=== PATIENT | female | born 1980 | race Caucasian/White ===

== ENCOUNTER 2018-03-27 15:15 | Outpatient (REF) | payer OTHER, SELFPAY ==
--- NOTE | 2018-03-27 14:00 | PAPFT_PTH ---
PATIENT: Shelby Sutton LOC: [facility] U#:[id number] AGE/SX: 38/F ROOM: RE03/27/[address]: Jennyfer Byers V : 1980 BED: DIS: 03/27/2018 SPEC #: [id number] RECD: 04/01/18 14:43 STATUS: LEBRON REQ #: [id number] GUILLERMO: 03/27/18 14:[address]: Jennyfer Byers V DEPT: [facility] Cytology RECD BY: Emma Pantoja ENTERED: 04/01/18 14:44 SP TYPE: PAPFT OTHR DR: Huan Gerardo Tissues: 1 - CX/ENDOCX FOR PAP SMEARS Procedures: PAP THIN PREP/UVM Screening HPV DNA PROBE Comments: [id number]
== END 2018-03-27 15:35 ==
LOC: LBN 15:15
PROVIDERS: PCP Internal Medicine; Visit Provider Family Medicine
DX: Z12.4 Encounter for screening for malignant neoplasm of cervix (principal); Z11.51 Encounter for screening for human papillomavirus (HPV); Z01.419 Encounter for gynecological examination (general) (routine) without abnormal findings
CPT/HCPCS: 88142; 87624

== ENCOUNTER 2018-06-08 13:50 | Outpatient (CLI) | payer OTHER, SELFPAY ==
--- NOTE | 2018-06-08 15:01 | DI.RAD_ITS ---
SYMPTOM/DIAGNOSIS: COUGH, R05 PA AND LATERAL CHEST: There are no prior comparison exams. The cardiac and mediastinal contours have a normal appearance. The lungs are well inflated and clear. No infiltrate or effusion is seen. IMPRESSION: Negative chest xray.
== END 2018-06-08 14:10 ==
PROVIDERS: PCP Internal Medicine; Visit Provider Physician Assistant Medical
DX: R05 Cough (principal)
CPT/HCPCS: 71046

== ENCOUNTER 2019-03-30 09:17 | Outpatient (REF) | payer OTHER, SELFPAY ==
[2019-03-30 15:58] LABS: Calculated LDL 130 mg/dL; Cholesterol 201 mg/dL (<200); Folate 16.4 ng/mL (8.6-20.0); Glucose 102 mg/dL (74-106); HDL Cholesterol 52 mg/dL (40-60); TSH (W/Ref FT4) 2.48 uIU/mL (0.36-3.74); Triglyceride 95 mg/dL (<150)
== END 2019-03-30 09:37 ==
LOC: NCHCN 09:17
PROVIDERS: PCP Internal Medicine; Visit Provider Family Medicine
DX: Z00.00 Encounter for general adult medical examination without abnormal findings (principal); Z13.1 Encounter for screening for diabetes mellitus; Z13.29 Encounter for screening for other suspected endocrine disorder; Z13.220 Encounter for screening for lipoid disorders
CPT/HCPCS: 80061; 82947; 82746; 84443

== ENCOUNTER 2019-04-05 01:23 | Outpatient (CLI) | payer OTHER, SELFPAY ==
--- NOTE | 2019-04-05 | PFT_ITS ---
PULMONARY FUNCTION TEST REPORT Patient - Shelby Sutton DATE OF SERVICE April 05, 2019 REQUESTING PROVIDER Jennyfer Byers M.D. INTERPRETATION OF STUDY Spirometry shows mild obstructive airways disease with no significant bronchodilators response. LUNG VOLUMES - Lung volumes show no evidence of restriction. There is mild hyperinflation. DIFFUSION CAPACITY- Elevated. AIRWAY RESISTANCE - Normal. IMPRESSION Mild obstructive airways disease with no significant bronchodilator response. This is associated with mild hyperinflation and elevated diffusion capacity. This constellation of finding can be seen in asthma. Clinical correlation recommended. Jacki Gonzalez M.D. MAXIMO/ 04/22/19
[2019-04-05] MEDS: Inhaler, Assist Device 1 EACH MC (13:54)
[2019-04-05] MEDS: Albuterol HFA 18 GM 200 PUFF INH IH (13:55)
== END 2019-04-05 01:43 ==
PROVIDERS: PCP Family Medicine; Visit Provider Family Medicine
DX: J45.909 Unspecified asthma, uncomplicated (principal); R05 Cough
CPT/HCPCS: 94060; 94150; 94726; 94729

== ENCOUNTER 2020-04-04 22:33 | Outpatient (REF) | payer OTHER, SELFPAY ==
[2020-04-04 19:06] LABS: Anion Gap 11.3 mmol/L (3-11); BUN 16 mg/dL (7-18); CO2 21.7 mmol/L (21.0-32.0); CREATININE 0.93 mg/dL (0.55-1.02); Calcium 9.1 mg/dL (8.5-10.1); Chloride 107 mmol/L (98-107); Glucose 100 mg/dL (74-106); Potassium 4.3 mmol/L (3.5-5.1); Sodium 140 mmol/L (136-145)
[2020-04-04 19:34] LABS: Hemoglobin A1C 5.6 % (<5.7)
== END 2020-04-04 22:53 ==
LOC: NCHCN 22:33
PROVIDERS: PCP Family Medicine; Visit Provider Family Medicine
DX: Z00.00 Encounter for general adult medical examination without abnormal findings (principal); I10 Essential (primary) hypertension
CPT/HCPCS: 80048; 85027; 83036

== ENCOUNTER 2020-04-06 01:38 | Outpatient (CLI) | payer OTHER, SELFPAY ==
--- NOTE | 2020-04-06 13:43 | DI.MAMMO_ITS ---
EXAM: MG MAMMO SCREENING CLINICAL HISTORY: SCREENING, [facility],Z00.00,FAMILY H/O BREAST CA,Z80.3,BASELIN. TECHNIQUE: Bilateral full field digital CC and MLO mammographic images were obtained with 3D tomosyn thesis and utilizing computer aided detection (CAD). COMPARISON: None. This is a baseline mammogram in a 40-year-old patient with significant family his tory. Both her mother and grandmother had postmenopausal breast cancer. This patient has no present breast complaints. FINDINGS: The fibroglandular tissue is moderately dense. There is a 10 x 12 millimeter nodular density in the left breast, medial of center and best seen on t he cc view, located 11 centimetres in from the nipple. there is also a small microcalcification group towards the lateral aspect of the left breast located 7 centimetres in from the nipple, this require spot Mag CC view. In the opposite-right breast there is a area of asymmetric tissue-possible nodule towards the upper o uter quadrant, best seen on MLO view. No malignant-appearing microcalcification groups in the right breast. There is no significant architectural distortion nor skin thickening-retraction. IMPRESSION: 1. Two areas in the left breast requiring additional views including spot compression 3D DC C views of a medial of center located 10 x 12 millimeter nodular density as well as spot Mag cc 2D view of a group of microcalcifications lateral of center. 2. Single area in the right breast requiring additional spot compression MLO view. 3. Also recommend bilateral breast ultrasound. This patient has significant family history and that both her mother and grandmother were diagnosed w ith breast cancer. BI-RADS Category 0 - Assessment Incomplete: Need additional imaging evaluation Breast Density - Category C - Heterogeneously dense Breast density Category C or D implies that the patient has dense breast tissue. Dense breast tissue can make it harder to find cancer on a mammogram. Dense breast tissue is also associated with an incr eased risk of breast cancer. This information about the result of the mammogram report was provided to the patient to raise their awareness. Use this report when you speak with the patient about their risks for breast cancer, which includes their family history. At that time, you may recommend additional screening tests (Ultrasoun d or MRI) as these tests may add significant information. A negative radiographic report should not delay biopsy if a dominant or clinically suspicious mass is present. Up to ten percent of cancers are not identified on mammography. A negative report may reinforce clinical impression. Adenosis and dense breasts may obscure an underlying neoplasm. False positive reports average 6 to 10%. Patient will receive a letter notifying them of these results.
== END 2020-04-06 01:58 ==
PROVIDERS: PCP Family Medicine; Visit Provider Family Medicine
DX: Z12.31 Encounter for screening mammogram for malignant neoplasm of breast (principal); Z80.3 Family history of malignant neoplasm of breast; R92.8 Other abnormal and inconclusive findings on diagnostic imaging of breast; R92.0 Mammographic microcalcification found on diagnostic imaging of breast
CPT/HCPCS: 77063; 77067

== ENCOUNTER 2020-05-02 02:20 | Outpatient (CLI) | payer OTHER, SELFPAY ==
--- NOTE | 2020-05-02 15:20 | DI.MAMMO_ITS ---
EXAM: MG MAMMO SCREEN CALL BACK BI CLINICAL HISTORY: F/U MAMMO, NODULAR DENSITY LT BREAST,MICROCALCIFICATION,RT BREAST TECHNIQUE: Spot compression views with tomography were performed of both breasts. Spot magnificatio n CC view was performed of the lateral left breast. COMPARISON: Baseline examination of March 26. FINDINGS: Right breast: No persistent abnormality is seen on the spot compression views. Findings are consiste nt with overlying fibroglandular tissue. Masses/Architectural Distortion: None seen. Microcalcifications: No suspicious pleomorphic-type are seen. Skin Thickening/Nipple Retraction: None. Left breast: Spot compression CC view of the medial left breast shows no persistent abnormality. Fin dings likely represent overlying fibroglandular tissue. No corresponding abnormality is seen on the MLO view. Spot magnification view shows a faintly visualized rounded calcifications. No suspicious calcifications are seen. IMPRESSION: Right breast: Negative. Left breast: Faintly visualized calcifications in the upper outer quadrant.. BI-RADS Category 3 - 6 month - Probably Benign Finding: Recommend follow-up mammography in 6 months Breast Density - Category C - Heterogeneously dense Breast density category C or D implies that the patient has dense breast tissue. Dense breast tissue is very common and is not abnormal but dense breast tissue can make it harder to find cancer on a ma mmogram. Also, dense breast tissue may increase their breast cancer risk. This information about the result of the mammogram report was provided to the patient to raise their awareness. Use this report when you speak with the patient about their risks for breast cancer, which includes their family hist ory. At that time, you may recommend for more screening tests (Ultrasound or MRI) as they might be us eful based on their risk. A negative radiographic report should not delay biopsy if a dominant or clinically suspicious mass is present. Up to ten percent of cancers are not identified on mammography. A negative report may reinforce clinical impression. Adenosis and dense breasts may obscure an underlying neoplasm. False positive reports average 6 to 10%. Patient will receive a letter notifying them of these results.
== END 2020-05-02 02:40 ==
PROVIDERS: PCP Family Medicine; Visit Provider Family Medicine
DX: R92.8 Other abnormal and inconclusive findings on diagnostic imaging of breast (principal); R92.0 Mammographic microcalcification found on diagnostic imaging of breast
CPT/HCPCS: 77063; 77067

== ENCOUNTER 2020-11-01 02:29 | Outpatient (CLI) | payer OTHER, SELFPAY ==
--- NOTE | 2020-11-01 | DI.US_ITS ---
Exam(s) US BREAST LT COMPLETE EXAM: US BREAST LT COMPLETE CLINICAL HISTORY: DIAGNOSTIC, 6 MO F/U, F/U ABNL MAMMO,R92.8,FAMILY H/O BREAST CA,Z80.3. TECHNIQUE: Complete ultrasound of the left breast was performed including all 4 quadrants, the retro areolar region, and the ipsilateral axilla. COMPARISON: Prior mammograms were reviewed. Today's diagnostic left breast ultrasound was reviewed FINDINGS: No evidence of solid or significant cystic lesions in all 4 quadrants of the left breast. No focal findings in the retroareolar region Upper normal lymph nodes in left axilla noted IMPRESSION: Negative complete left breast ultrasound Appropriate follow-up is to keep this patient yearly mammogram schedule, this implying the next [facility] mamm[facility] would be in March 2020, with earlier imaging if a self detected breast change is no pan. BI-RADS Category 2 - Benign Findings Breast Density - Category C - Heterogeneously dense Breast density Category C or D implies that the patient has dense breast tissue. Dense breast tissue can make it harder to find cancer on a mammogram. Dense breast tissue is also associated with an incr eased risk of breast cancer. This information about the result of the mammogram report was provided to the patient to raise their awareness. Use this report when you speak with the patient about their risks for breast cancer, which includes their family history. At that time, you may recommend additional screening tests (Ultrasoun d or MRI) as these tests may add significant information. A negative radiographic report should not delay biopsy if a dominant or clinically suspicious mass is present. Up to ten percent of cancers are not identified on mammography. A negative report may reinforce clinical impression. Adenosis and dense breasts may obscure an underlying neoplasm. False positive reports average 6 to 10%. Patient will receive a letter notifying them of these results.
--- NOTE | 2020-11-01 09:21 | DI.MAMMO_ITS ---
Exam(s) MG MAMMO DIAGNOSTIC UNI EXAM: MG MAMMO DIAGNOSTIC UNI LEFT AND COMPLETE LEFT BREAST ULTRASOUND CLINICAL HISTORY: DIAGNOSTIC, 6 MO F/U, F/U ABNL MAMMO,R92.8,FAMILY H/O BREAST CA,Z80.3. TECHNIQUE: Unilateral spot mammographic images were obtained with 3D [employer] and util izing computer aided detection (CAD). COMPARISON: Prior mammograms dating back to baseline mammogram March 2020, the most recent being the diagnostic mammogram April 2020.. Her mother was recently diagnosed with breast cancer. FINDINGS: Previously described asymmetric density in the medial aspect of the left breast appears less concerni ng on the present diagnostic follow mammogram. This was followed with complete left breast ultrasound today which was negative for significant focal findings in all 4 quadrants, as well as the retroareolar region Benign-appearing lymph nodes in left axilla were noted IMPRESSION: No radiographic evidence of malignancy Negative complete left breast ultrasound Appropriate follow-up is to keep this patient yearly mammogram schedule, this implying the next [facility] mammogram would be in March 2021. The patient was informed of the findings and follow-up recommendations prior to leaving the [facility] today. BI-RADS Category 2 - Benign Findings Breast Density - Category C - Heterogeneously dense Breast density Category C or D implies that the patient has dense breast tissue. Dense breast tissue can make it harder to find cancer on a mammogram. Dense breast tissue is also associated with an incr eased risk of breast cancer. This information about the result of the mammogram report was provided to the patient to raise their awareness. Use this report when you speak with the patient about their risks for breast cancer, which includes their family history. At that time, you may recommend additional screening tests (Ultrasoun d or MRI) as these tests may add significant information. A negative radiographic report should not delay biopsy if a dominant or clinically suspicious mass is present. Up to ten percent of cancers are not identified on mammography. A negative report may reinforce clinical impression. Adenosis and dense breasts may obscure an underlying neoplasm. False positive reports average 6 to 10%. Patient will receive a letter notifying them of these results.
== END 2020-11-01 02:49 ==
PROVIDERS: PCP Family Medicine; Visit Provider Family Medicine
DX: R92.8 Other abnormal and inconclusive findings on diagnostic imaging of breast (principal); R92.2 Inconclusive mammogram; Z80.3 Family history of malignant neoplasm of breast
CPT/HCPCS: 76642; 77061; 77065; G0279

== ENCOUNTER 2021-06-28 02:22 | Outpatient (CLI) | payer OTHER, SELFPAY ==
--- NOTE | 2021-06-28 | DI.MAMMO_ITS ---
Exam(s) MAMMO SCREENING EXAM: MAMMO SCREENING CLINICAL HISTORY: SCREENING, [facility], Z00.00, FAM HX BREAST CA, Z80.3 TECHNIQUE: Bilateral full field digital CC and MLO mammographic images were obtained with 3D tomosyn thesis and utilizing computer aided detection (CAD). COMPARISON: Available for comparison. FINDINGS: Masses/Architectural Distortion: None seen. Microcalcifications: No suspicious pleomorphic-type are seen. Skin Thickening/Nipple Retraction: None. IMPRESSION: 1. No significant interval change with no specific features of malignancy noted. 2. Unless there is more urgent need, screening mammography is recommended, as per [employer] guidelines. BI-RADS Category 1 - Negative Breast Density - Category C - Heterogeneously dense Breast density category C or D implies that the patient has dense breast tissue. Dense breast tissue is very common and is not abnormal but dense breast tissue can make it harder to find cancer on a ma mmogram. Also, dense breast tissue may increase their breast cancer risk. This information about the result of the mammogram report was provided to the patient to raise their awareness. Use this report when you speak with the patient about their risks for breast cancer, which includes their family hist ory. At that time, you may recommend for more screening tests (Ultrasound or MRI) as they might be us eful based on their risk. A negative radiographic report should not delay biopsy if a dominant or clinically suspicious mass is present. Up to ten percent of cancers are not identified on mammography. A negative report may reinforce clinical impression. Adenosis and dense breasts may obscure an underlying neoplasm. False positive reports average 6 to 10%. Patient will receive a letter notifying them of these results.
== END 2021-06-28 02:42 ==
PROVIDERS: PCP Family Medicine; Visit Provider Family Medicine
DX: Z12.31 Encounter for screening mammogram for malignant neoplasm of breast (principal); R92.8 Other abnormal and inconclusive findings on diagnostic imaging of breast
CPT/HCPCS: 77063; 77067

== ENCOUNTER → 2022-03-13 18:39 | Outpatient (CLI) | payer OTHER, SELFPAY ==
--- NOTE | 2022-03-13 16:45 | DI.RAD_ITS ---
Exam(s) XR FINGER LT MIDDLE EXAM: XR FINGER LT MIDDLE EXAM DATE/TIME: CLINICAL HISTORY: finger injury, pain PIP S69.90XA INJURY. TECHNIQUE: 2D digital imaging was performed of the left finger. Three views were obtained. PA/AP, oblique, and lateral views were obtained. COMPARISON: None. FINDINGS: BONES: No acute fracture is present. No bony destructive lesion is seen. JOINTS: No dislocation is present. SOFT TISSUE: Normal. IMPRESSION: No evidence of acute fracture or dislocation. DATA REPOSITORY: RADIATION DOSE DELIVERED:
--- NOTE | 2022-03-13 17:46 | DI.VRAD_ITS ---
PROCEDURE INFORMATION: Exam: XR Left Finger(s) Exam date and time: 03/13/2022 5:26 PM Age: 41 years old Clinical indication: Other: Left middle finger injury, pain, pip, TECHNIQUE: Imaging protocol: Radiologic exam of the Left fingers. Views: Minimum 2 views. COMPARISON: No relevant prior studies available. FINDINGS: Bones/joints: Normal. Soft tissues: Normal. IMPRESSION: No acute findings. Dictated and Authenticated by: Cory Hernandez MD. Ordering:KENYETTA Wall MD
== END ==
PROVIDERS: PCP Family Medicine; Visit Provider Physician Assistant
DX: S69.82XA Other specified injuries of left wrist, hand and finger(s), initial encounter; M79.645 Pain in left finger(s); X58.XXXA Exposure to other specified factors, initial encounter
CPT/HCPCS: 73140

== ENCOUNTER 2022-05-10 08:56 | Outpatient (REF) | payer OTHER, SELFPAY ==
--- NOTE | 2022-05-10 08:15 | PAPFT_PTH ---
PATIENT: Shelby Sutton LOC: [facility]#:[id number] AGE/SX: 42/F ROOM: RE05/10/[address]: Jennyfer Byers V : 1980 BED: DIS: 05/10/2022 SPEC #: [id number] RECD: 05/10/22 17:52 STATUS: LEBRON WILLAMS #: [id number] GUILLERMO: 05/10/22 08:[address]: Jennyfer Byers V DEPT: [facility] Cytology RECD BY: Fe Archer Tissues: 1 - CX/ENDOCX FOR PAP SMEARS Procedures: PAP THIN PREP/UVM Screening HPV DNA PROBE Comments: [id number]
--- OUTSIDE RECORDS SUMMARY | 2022-05-10 08:59 | XMS_ITS ---
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.1 Active 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 rhinitis due to pollen Problem Deviated nasal J34.2 Active 30122 0000 septum Problem Postnasal drip R09.82 Active 52648 007 Problem Allergic J30.9 Active 61672617 rhinitis Problem Other viral B97.89 Active 44957385 agents as the cause of diseases classified elsewhere ALLERGIES Substance Reaction Event Type Date Status environmental Unknown Non Drug Allergy Sep, Active ENCOUNTERS Encounter Location Date Diagnosis [address], Apr, Allerg ic rhinitis due [facility] [address] to pollen J30.1 [place], [place] [id number] [address], Mar, Allerg ic rhinitis due [facility] [address] to pollen J30.1 [place] [id number] [address], Feb, Allerg ic rhinitis due [facility] [address] to pollen J30.1 [place] [id number] [address], Jan, Allerg ic rhinitis due [facility] [address] to pollen J30.1 [place] [id number] [address], Dec, Allerg ic rhinitis due [facility] [address] to pollen J30.1 [place], [place] [id number] [address], Dec, Allerg ic rhinitis due [facility] [address] to pollen J30.1 [place] [id number] [address], Nov, Allerg ic rhinitis due [facility] [address] to pollen J30.1 [place] [id number] [address], Sep, Allerg ic rhinitis due [facility] [address] to pollen J30.1 [place] [id number] [address], Sep, Allerg ic rhinitis due [facility] [address] to pollen J30.1 [place] [id number] [address], August, Allerg ic rhinitis due [facility] [address] to pollen J30.1 [place] [id number] [address], Jul, Allerg ic rhinitis due [facility] [address] to pollen J30.1 [facility], [place] [id number] [address], Jun, Allerg ic rhinitis due [facility] [address] to pollen J30.1 [place] [id number] [address], Jun, Allerg ic rhinitis due [facility] [address] to pollen J30.1 [facility], [place] [id number] [address], May, Allerg ic rhinitis due [facility] [address] to pollen J30.1 [facility] [id number] [address], Apr, Allerg ic rhinitis due [facility] [address] to pollen J30.1 [facility] [id number] [address] Mar, Allergic r hinitis due Ot[facility] [address] [place], [place] to pollen J30.[id number], Mar, Allerg ic rhinitis due [facility] [address] to pollen J30.1 [place] [id number] [address], Mar, Allerg ic rhinitis due [facility] [address] to pollen J30.1 [place] [id number] [address], Feb, [facility] [address] [place], [place] [id number] [address], Feb, Allerg ic rhinitis due [facility] [address] to pollen J30.1 [place], [place] [id number] [address], Jan, Allerg ic rhinitis due [facility] [address] to pollen J30.1 [place] [id number] [address], Jan, Allerg ic rhinitis due [facility] [address] to pollen J30.1 [facility], [place] [id number] [address], Dec, Allerg ic rhinitis due [facility] [address] to pollen J30.1 [facility] [id number] [address], Nov, Allerg ic rhinitis due [facility] [address] to pollen J30.1 [facility] [id number] [address], Oct, Allerg ic rhinitis due [facility] [address] to pollen J30.1 [place] [id number] [address], Sep, Allerg ic rhinitis due [facility] [address] to pollen J30.1 [place] [id number] [address], Sep, Allerg ic rhinitis due [facility] [address] to pollen J30.1 [place] [id number] [address], August, Allerg ic rhinitis due [facility] [address] to pollen J30.1 [place] [id number] [address], August, Allerg ic rhinitis due [facility] [address] to pollen J30.1 [facility] [id number] [address], Jul, Allerg ic rhinitis due [facility] [address] to pollen J30.1 [place] [id number] [address], Jul, Allerg ic rhinitis due [facility] [address] to pollen J30.1 [place] [id number] [address], Jun, Allerg ic rhinitis due [facility] [address] to pollen J30.1 [facility], [place] [id number] [address], May, Allerg ic rhinitis due [facility] [address] to pollen J30.1 [facility] [id number] [address], Apr, Allerg ic rhinitis due [facility] [address] to pollen J30.1 [facility] [id number] [address], Mar, Allerg ic rhinitis due [facility] [address] to pollen J30.1 [facility] [id number] [address], Mar, Allerg ic rhinitis due [facility] [address] to pollen J30.1 [facility], [place] [id number] [address], Mar, Allerg ic rhinitis due [facility] [address] to pollen J30.1 [place] [id number] [address], Feb, Allerg ic rhinitis due [facility] [address] to pollen J30.1 [facility] [id number] [address], Feb, Allerg ic rhinitis due [facility] [address] to pollen J30.1 [facility], [place] [id number] [address], Jan, Allerg ic rhinitis due [facility] [address] to pollen J30.1 [facility] [id number] [address], Dec, Allerg ic rhinitis due [facility] [address] to pollen J30.1 [facility] [id number] [address], Nov, Allerg ic rhinitis due [facility] [address] to pollen J30.1 [facility], [place] [id number] [address], Nov, Allerg ic rhinitis due [facility] [address] to pollen J30.1 [facility] [id number] [address], Nov, Allerg ic rhinitis due [facility] [address] to pollen J30.1 [facility] [id number] [address], Nov, Allerg ic rhinitis due [facility] [address] to pollen J30.1 [facility] [id number] [address], Nov, Allerg ic rhinitis due [facility] [address] to pollen J30.1 [place] [id number] [address], Oct, Allerg ic rhinitis due [facility] [address] to pollen J30.1 [facility] [id number] [address], Oct, Allerg ic rhinitis due [facility] [address] to pollen J30.1 [place] [id number] [address], Oct, Allerg ic rhinitis due [facility] [address] to pollen J30.1 [facility] [id number] [address], Sep, Allerg ic rhinitis due [facility] [address] to pollen J30.1 [place] [id number] [address], Sep, Allerg ic rhinitis due [facility] [address] to pollen J30.1 [place] [id number] [address], Sep, Allerg ic rhinitis due [facility] [address] to pollen J30.1 [facility], [place] [id number] [address], Sep, Allerg ic rhinitis due [facility] [address] to pollen J30.1 [place] [id number] [address], Sep, Allerg ic rhinitis due [facility] [address] to pollen J30.1 [place] [id number] [address], August, [facility] [address] [place] [id number] [address], Jun, Allerg ic rhinitis due [facility] [address] to pollen J30.1 [place] [id number] [address], May, Allerg ic rhinitis due [facility] [address] to pollen J30.1 [place] [id number] [address], Apr, Allerg ic rhinitis due [facility] [address] to pollen J30.1 [place] [id number] [address], Mar, Allerg ic rhinitis due [facility] [address] to pollen J30.1 [place] [id number] [address], Mar, Allerg ic rhinitis due [facility] [address] to pollen J30.1 [place] [id number] [address], Mar, Allerg ic rhinitis due [facility] [address] to pollen J30.1 [place] [id number] [address], Feb, Allerg ic rhinitis due [facility] [address] to pollen J30.1 [facility], [place] [id number] [address], Jan, Allerg ic rhinitis due [facility] [address] to pollen J30.1 [facility], [place] [id number] [address] Jan, Allergic r hinitis due Ot[facility] [address] [place], [place] to pollen J30.[id number], Dec, Allerg ic rhinitis due [facility] [address] to pollen J30.1 [place] [id number] [address], Nov, Allerg ic rhinitis due [facility] [address] to pollen J30.1 [place] [id number] [address], Nov, Allerg ic rhinitis due [facility] [address] to pollen J30.1 [place] [id number] [address] Oct, Allergic r hinitis due Ot[facility] [address] [place], [place] to pollen J30.[id number], Sep, Allerg ic rhinitis due [facility] [address] to pollen J30.1 [place] [id number] [address], Sep, Allerg ic rhinitis due [facility] [address] to pollen J30.1 [place] [id number] [address], Sep, Allerg ic rhinitis due [facility] [address] to pollen J30.1 [place] [id number] [address], August, Allerg ic rhinitis due [facility] [address] to pollen J30.1 [place] [id number] [address], Jul, Allerg ic rhinitis due [facility] [address] to pollen J30.1 [place] [id number] [address], Jul, Allerg ic rhinitis due [facility] [address] to pollen J30.1 [place] [id number] [address], Jun, Allerg ic rhinitis due [facility] [address] to pollen J30.1 [place] [id number] [address], Apr, Allerg ic rhinitis due [facility] [address] to pollen J30.1 [place] [id number] [address], Apr, Allerg ic rhinitis due [facility] [address] to pollen J30.1 [place] [id number] [address], Mar, Allerg ic rhinitis due [facility] [address] to pollen J30.1 [place] [id number] [address], Mar, Allerg ic rhinitis due [facility] [address] to pollen J30.1 [place] [id number] [address], Feb, Allerg ic rhinitis due [facility] [address] to pollen J30.1 [place] [id number] [address], Jan, Allerg ic rhinitis due [facility] [address] to pollen J30.1 [place] [id number] [address], Jan, Allerg ic rhinitis due [facility] [address] to pollen J30.1 [place] [id number] [address], Jan, [facility] [address] [place] [id number] [address], Dec, Allerg ic rhinitis due [facility] [address] to pollen J30.1 [place] [id number] [address], Nov, Allerg ic rhinitis due [facility] [address] to pollen J30.1 [place] [id number] [address], Nov, Allerg ic rhinitis due [facility] [address] to pollen J30.1 [facility] [id number] [address], Oct, Allerg ic rhinitis due [facility] [address] to pollen J30.1 [place] [id number] [address], Sep, Allerg ic rhinitis due [facility] [address] to pollen J30.1 [place] [id number] [address], August, Allerg ic rhinitis due [facility] [address] to pollen J30.1 [place] [id number] [address], August, Allerg ic rhinitis due [facility] [address] to pollen J30.1 [place] [id number] [address], August, Allerg ic rhinitis due [facility] [address] to pollen J30.1 [facility], [place] [id number] [address], Jul, Allerg ic rhinitis due [facility] [address] to pollen J30.1 [place] [id number] [address], Jul, Allerg ic rhinitis due [facility] [address] to pollen J30.1 [place], [place] [id number] [address], Jun, Allerg ic rhinitis due [facility] [address] to pollen J30.1 [place] [id number] [address], May, Allerg ic rhinitis due [facility] [address] to pollen J30.1 [place] [id number] [address], Apr, Allerg ic rhinitis due [facility] [address] to pollen J30.1 [place], [place] [id number] [address], Apr, Allerg ic rhinitis due [facility] [address] to pollen J30.1 [place] [id number] [address], Mar, [facility] [address] [place] [id number] [address], Mar, Allerg ic rhinitis due [facility] [address] to pollen J30.1 [place] [id number] [address], Feb, Allerg ic rhinitis due [facility] [address] to pollen J30.1 [place] [id number] [address], Feb, Allerg ic rhinitis due [facility] [address] to pollen J30.1 [place] [id number] [address], Jan, Allerg ic rhinitis due [facility] [address] to pollen J30.1 [place] [id number] [address], Jan, Allerg ic rhinitis due [facility] [address] to pollen J30.1 [place] [id number] [address], Jan, Allerg ic rhinitis due [facility] [address] to pollen J30.1 [place] [id number] [address], Dec, Allerg ic rhinitis due [facility] [address] to pollen J30.1 [place] [id number] [address], Nov, Allerg ic rhinitis due [facility] [address] to pollen J30.1 [place] [id number] [address], Nov, Allerg ic rhinitis due [facility] [address] to pollen J30.1 [facility], [place] [id number] [address] Oct, Allergic r hinitis due [facility] [address] [place], [place] to pollen J30.[id number], Oct, Allerg ic rhinitis due [facility] [address] to pollen J30.1 [place], [place] [id number] [address], Sep, Allerg ic rhinitis due [facility] [address] to pollen J30.1 [place] [id number] [address], August, Allerg ic rhinitis due [facility] [address] to pollen J30.1 [place] [id number] [address], August, Allerg ic rhinitis due [facility] [address] to pollen J30.1 [place] [id number] [address], Jul, Allerg ic rhinitis due [facility] [address] to pollen J30.1 [place] [id number] [address], Jul, Allerg ic rhinitis due [facility] [address] to pollen J30.1 [facility], [place] [id number] [address], Jun, Allerg ic rhinitis due [facility] [address] to pollen J30.1 [place], [place] [id number] [address], May, Allerg ic rhinitis due [facility] [address] to pollen J30.1 [place] [id number] [address], Apr, Allerg ic rhinitis due [facility] [address] to pollen J30.1 [place] [id number] [address], Apr, Allerg ic rhinitis due [facility] [address] to pollen J30.1 [place], [place] [id number] [address], Mar, Allerg ic rhinitis due [facility] [place] [facility] [address] [address] to pollen J30.1 [place] [id number] [address], Feb, Allerg ic rhinitis due [facility] [place] [address] [address] to pollen J30.1 [place], [place] [id number] [address], Jan, Allerg ic rhinitis due [facility] [address] to pollen J30.1 [place] [id number] [address], Jan, Postna romy drip R09.82 ; [facility] [address] [address] Al lergic rhinitis due [place] to pollen J3 0.1 ; Acute [id number] upper respirator y infection, unspe cified J06.9 and Other viral agents as the ca use of diseases classif ied elsewhere B97.[address], Jan, Allerg ic rhinitis due [facility] [address] to pollen J30.1 [place], [place] [id number] [address], Dec, Allerg ic rhinitis due [facility] [place] [address] [address] to pollen J30.1 [place] [id number] [address], Dec, Allerg ic rhinitis due [facility] [address] to pollen J30.1 [place], [place] [id number] [address], Nov, Allerg ic rhinitis due [facility] [address] to pollen J30.1 [place], [place] [id number] [address], Nov, Allerg ic rhinitis due [facility] [address] to pollen J30.1 [place] [id number] [address] Oct, Otolaryngology [address] [place], [place] [id number] [address], Oct, Allerg ic rhinitis due [facility] [address] to pollen J30.1 [place], [place] [id number] [address], Oct, Allerg ic rhinitis due [facility] [address] to pollen J30.1 [place] [id number] [address], Sep, Allerg ic rhinitis due [facility] [address] to pollen J30.1 [place], [place] [id number] [address], Sep, Allerg ic rhinitis due [facility] [address] to pollen J30.1 [place] [id number] [address], August, Allerg ic rhinitis due [facility] [address] to pollen J30.1 [place] [id number] [address] August, Postnasal drip R09.82 ; [facility] [address] [place], [place] Allergic rhinitis due [id number] to pollen J30.1 and Allergic rhiniti s due to pollen 477.[address], Jul, Allerg ic rhinitis due [facility] [address] to pollen 477.0 [facility], [place] [id number] [address] Jul, Allergic r hinitis due [facility] [address] [place], [place] to pollen J30.[id number], Jul, Allerg ic rhinitis due [facility] [address] to pollen J30.1 [place] [id number] [address], Jul, Allerg ic rhinitis due [facility] [address] to pollen J30.1 [place] [id number] [address], Jun, Allerg ic rhinitis due [facility] [address] to pollen J30.1 [place], [place] [id number] [address], Jun, Allerg ic rhinitis due [facility] [address] to pollen J30.1 [place], [place] [id number] [address], May, Allerg ic rhinitis due [facility] [address] to pollen J30.1 [place] [id number] [address], May, Allerg ic rhinitis due [facility] [address] to pollen J30.1 [place] [id number] [address], May, [facility] [address] [place] [id number] [address], May, Allerg ic rhinitis due [facility] [address] to pollen J30.1 [place], [place] [id number] [address] May, Allergic r hinitis due Otolaryngology [address] [place], [place] to pollen J30.[id number], Apr, Allerg ic rhinitis due [facility] [address] to pollen J30.1 [place], [place] [id number] [address], Apr, Allerg ic rhinitis due [facility] [address] to pollen J30.1 [place], [place] [id number] [address], Apr, Allerg ic rhinitis due [facility] 5 [address] to allergen J30.9 ; [facility], [place] Allergic rhi nitis due [id number] to pollen J30.1 and Postnasal drip R 09.[address], Apr, Allerg ic rhinitis due [facility] [address] to pollen J30.1 [place], [place] [id number] [address], Mar, Allerg ic rhinitis due [facility] 5 [address] to pollen J30.1 [place], [place] [id number] [address], Mar, Allerg ic rhinitis due [facility] [address] to pollen J30.1 [place], [place] [id number] [address], Mar, Allerg ic rhinitis due [facility] [address] to allergen J30.9 [place], [place] [id number] [address] Feb, Otolaryngology [address] [place], [place] [id number] [address], Feb, Allerg ic rhinitis due [facility] [address] to allergen J30.9 [place] [id number] [address], Feb, Allerg ic rhinitis due [facility] [address] to allergen J30.9 [place] [id number] [address], Feb, Allerg ic rhinitis due [facility] [address] to allergen J30.9 [place] [id number] [address] Feb, Otolaryngology [address] [place], [place] [id number] [address], Feb, Allerg ic rhinitis due [facility] [address] to allergen J30.9 [place] [id number] [address], Jan, Allerg ic rhinitis due [facility] [address] to allergen J30.9 [place] [id number] [address], Jan, Allerg ic rhinitis due [facility] [address] to allergen J30.9 [place] [id number] [address], Jan, Allerg ic rhinitis due [facility] [address] to allergen J30.9 [place] [id number] [address] Jan, Allergic r hinitis due Otolaryngology [address] [place], [place] to allerg en J30.[id number], Dec, Allerg ic rhinitis due [facility] [address] to allergen 477.8 [place] [id number] [address], Dec, ALLERG IC RHINITIS NOS [facility] [address] 47 7.9 ; Postnasal drip [facility], [place] 784.91 and U RI (upper [id number] respiratory infe ction) 465.[address], Dec, Allerg ic rhinitis due [facility] [address] to allergen 477.8 [place] [id number] [address] Dec, Allergic r hinitis due Otolaryngology [address] [place] to allerg en 477.[id number], Dec, Allerg ic rhinitis due [facility] [address] to allergen 477.8 [place] [id number] [address], Nov, Allerg ic rhinitis due [facility] [address] to allergen 477.8 [facility], [place] [id number] [address], Nov, Allerg ic rhinitis due [facility] [address] to allergen 477.8 [place] [id number] [address], Nov, Allerg ic rhinitis due [facility] [address] to allergen 477.8 [place] [id number] [address] Nov, Otolaryngology [address] [place] [id number] [address], Nov, Allerg ic rhinitis due [facility] [address] to allergen 477.8 [place] [id number] [address], Oct, Allerg ic rhinitis due [facility] [address] to allergen 477.8 [place] [id number] [address], Oct, Allerg ic rhinitis due [facility] [address] to allergen 477.8 [place] [id number] [address] Oct, Allergic r hinitis due Otolaryngology [address] [place] to allerg en 477.[id number], Oct, ALLERG IC RHINITIS NOS [facility] [address] 47 7.9 and Postnasal [facility], [place] drip 784.[id number], Sep, Allerg ic rhinitis due [facility] [address] to allergen 477.8 [place] [id number] [address], Sep, ALLERG IC RHINITIS NEC [facility] [address] 47 7.8 [place] [id number] [address], Sep, Allerg ic rhinitis due [facility] [address] to allergen 477.8 [place], [place] [id number] [address], Sep, Allerg ic rhinitis due [facility] [address] to allergen 477.8 [place] [id number] [address], Sep, Allerg ic rhinitis due [facility] [address] to allergen 477.8 [place] [id number] [address] Sep, Allergic r hinitis due Otolaryngology [address] [place] to allerg en 477.[id number], August, Allerg ic rhinitis due [facility] [address] to allergen 477.8 [place], [place] [id number] [address], August, Allerg ic rhinitis due [facility] [address] to allergen 477.8 [place] [id number] [address] August, Allergic r hinitis due Otolaryngology [address] [place] to allerg en 477.[id number], August, ALLERG IC RHINITIS NOS [facility] [address] 47 7.9 ; Allergic [place] rhinitis due to [id number] allergen 477.8 ; Acquired deflect ed nasal septum 470 and Postnasal drip [address], Jul, Allerg ic rhinitis due [facility] [address] to allergen 477.8 [place], [place] [id number] [address] Jul, ALLERGIC R HINITIS NOS Otolaryngology [address] [place] [address].[id number], Jul, ALLERG IC RHINITIS NEC [facility] [address] 47 7.8 [facility], [place] [id number] [address], Jun, Allerg ic rhinitis due [facility] [address] to allergen 477.8 [place] [id number] [address], Jun, Allerg ic rhinitis due [facility] [address] to allergen 477.8 [place] [id number] [address], Jun, Allerg ic rhinitis due [facility] [address] to allergen 477.8 [facility], [place] [id number] [address], Jun, Allerg ic rhinitis due [facility] [address] to allergen 477.8 [facility] [id number] [address], Jun, Allerg ic rhinitis due [facility] [address] to allergen 477.8 [facility] [id number] [address], May, ALLERG IC RHINITIS NOS [facility] [address] 47 7.9 [facility], [place] [id number] [address], May, ALLERG IC RHINITIS NEC [facility] [address] 47 7.8 [facility], [place] [id number] [address] May, Allergic r hinitis due Otolaryngology [address] [place] to allerg en 477.[id number], Apr, Allerg ic rhinitis due [facility] [address] to allergen 477.8 [facility], [place] [id number] [address], Apr, Allerg ic rhinitis due [facility] [address] to allergen 477.8 [place] [id number] [address], Apr, Allerg ic rhinitis due [facility] [address] to allergen 477.8 [place], [place] [id number] [address], Mar, Allerg ic rhinitis due [facility] [address] to allergen 477.8 [place] [id number] [address] Mar, Allergic r hinitis due Otolaryngology [address] [place], [place] to allerg en 477.[id number], Mar, Allerg ic rhinitis due [facility] [address] to allergen 477.8 [place], [place] [id number] [address], Mar, Allerg ic rhinitis due [facility] [address] to allergen 477.8 [place] [id number] [address], Mar, Upper respiratory [facility] [address] di sease NOS 478.9 ; [facility] [place] ALLERGIC RHI NITIS NOS [id number] 477.9 ; Postnasa l drip 784.91 and Acqui red deflected nasal septum [address], Mar, [facility] [address] [place] [id number] [address], Feb, Allerg ic rhinitis due [facility] [address] to allergen 477.8 [place], [place] [id number] [address] Feb, ALLERGIC R HINITIS NEC Otolaryngology [address] [place] [address].[id number], Feb, Allerg ic rhinitis due [facility] [address] to allergen 477.8 [place] [id number] [address], Feb, Allerg ic rhinitis due [facility] [address] to allergen 477.8 [facility] [id number] [address], Feb, Allerg ic rhinitis due [facility] [address] to allergen 477.8 [place] [id number] [address], Jan, Allerg ic rhinitis due [facility] [address] to allergen 477.8 [facility], [place] [id number] [address], Jan, Allerg ic rhinitis due [facility] [address] to allergen 477.8 [place] [id number] [address], Jan, Allerg ic rhinitis due [facility] [address] to allergen 477.8 [place] [id number] [address], Jan, Allerg ic rhinitis due [facility] [address] to allergen 477.8 [facility] [id number] [address], Dec, Allerg ic rhinitis due [facility] [address] to allergen 477.8 [place] [id number] [address], Dec, Allerg ic rhinitis due [facility] [address] to allergen 477.8 [place] [id number] [address], Dec, ALLERG IC RHINITIS NOS [facility] [address] 47 7.9 and Postnasal [facility], [place] drip 784.[id number], Dec, [facility] [address] [facility], [place] [id number] [address] Dec, ALLERGIC R HINITIS NEC Otolaryngology [address] [place] 477.[id number], Dec, Allerg ic rhinitis due [facility] [address] to allergen 477.8 [facility], [place] [id number] [address], Dec, Allerg ic rhinitis due [facility] [address] to allergen 477.8 [facility], [place] [id number] [address], Nov, Allerg ic rhinitis due [facility] [address] to allergen 477.8 [facility], [place] [id number] [address], Nov, Allerg ic rhinitis due [facility] [address] to allergen 477.8 [facility], [place] [id number] [address], Nov, Allerg ic rhinitis due [facility] [address] to allergen 477.8 [facility], [place] [id number] [address], Nov, Allerg ic rhinitis due [facility] [address] to allergen 477.8 [facility], [place] [id number] [address], Oct, Allerg ic rhinitis due [facility] [address] to allergen 477.8 [facility], [place] [id number] [address], Oct, Allerg ic rhinitis due [facility] [address] to allergen 477.8 [facility], [place] [id number] [address], Oct, Allerg ic rhinitis due [facility] [address] to allergen 477.8 [facility], [place] [id number] [address] Oct, Otolaryngology [address] [place], [place] [id number] [address], Oct, Allerg ic rhinitis due [facility] [address] to allergen 477.8 ; [facility], [place] ALLERGIC RHI NITIS NOS [id number] 477.9 and Postna romy drip 784.[address], Oct, Allerg ic rhinitis due [facility] [address] to allergen 477.8 [place] [id number] [address], Sep, ALLERG IC RHINITIS NOS [facility] [address] 47 7.9 [place] [id number] [address] Sep, ALLERGIC R HINITIS NEC Otolaryngology [address] [place] 477.[id number], Sep, Allerg ic rhinitis due [facility] [address] to allergen 477.8 [place], [place] [id number] [address], Sep, Allerg ic rhinitis due [facility] [address] to allergen 477.8 [place] [id number] [address], Sep, Allerg ic rhinitis due [facility] [address] to allergen 477.8 [place] [id number] [address], August, Allerg ic rhinitis due [facility] [address] to allergen 477.8 [place] [id number] [address], August, Allerg ic rhinitis due [facility] [address] to allergen 477.8 [place] [id number] [address] August, Allergic r hinitis due Otolaryngology [address] [place] to allerg en 477.[id number], August, Allerg ic rhinitis due [facility] [address] to allergen 477.8 [place], [place] [id number] [address], Jul, Allerg ic rhinitis due [facility] [address] to allergen 477.8 [place] [id number] [address], Jul, Allerg ic rhinitis due [facility] [address] to allergen 477.8 [place] [id number] [facility] Audiology [address] [place] [address] Jul, [address] [place], [place] [id number] [address], Jul, ALLERG IC RHINITIS NOS [facility] [address] 47 7.9 [place] [id number] [address], Jun, ALLERG IC RHINITIS NOS [facility] [address] 47 7.9 ; Postnasal drip Sang [facility], [place] 784.91 and A STHMA NOS [id number] 493.[address] Jun, Otolaryngology [address] [place], [place] [id number] [address] Jun, Allergic r hinitis due Ot[facility]aryngology [address] [place] to allerg en 477.8 and [id number] ASTHMA NOS 493.[address] Mar, Otolaryngology [address] [place], [place] [id number] [address], Mar, ALLERG IC RHINITIS NOS [facility] [address] 47 7.9 ; [facility] [place] 784.[place] ; Acq uired [id number] deflected nasal septum 470 ; HYPERTRPH NASAL TURBINAT 478.0 a nd ASTHMA NOS 493.[address], Feb, [facility] [address] [place], [place] [id number] IMMUNIZATIONS No Known Immunizations SOCIAL HISTORY Never Assessed REASON FOR REFERRAL FUNCTIONAL STATUS PLAN OF CARE Activity Details Follow Up 1 Week Reason: VITAL SIGNS Height 5ft 4 in in 2016-01-22 Height 5ft 4 in in 2015-08-18 Height 5ft 4 in in 2015-04-17 Height 5ft 4 in in 2014-10-10 Height 5ft 4 in in 2014-08-08 Height 5ft 4 in in 2014-03-07 Height 5ft 4 in in 2013-12-20 Height 5ft 4 in in 2013-10-11 Height 5ft 4 in in 2013-03-08 Weight 264 lbs 2016-01-22 Weight 220 lbs 2015-08-18 Weight 250 lbs 2014-10-10 Weight 240 lbs 2014-08-08 Weight 240 lbs 2014-03-07 Weight 220 lbs 2013-12-20 Weight 220 lbs 2013-10-11 Weight 230 lbs 2013-03-08 Heart Rate 88 /min 2016-01-22 Heart Rate 76 /min 2015-04-17 Heart Rate 77 /min 2014-03-07 Heart Rate 80 /min 2013-12-20 Oximetry 97 2014-03-07 Respiratory Rate 16 /min 2014-03-07 BMI 45.31 kg/m2 2016-01-22 BMI 37.76 kg/m2 2015-08-18 BMI 42.91 kg/m2 2014-10-10 BMI 41.19 kg/m2 2014-08-08 BMI 41.19 kg/m2 2014-03-07 BMI 37.76 kg/m2 2013-12-20 BMI 37.76 kg/m2 2013-10-11 BMI 39.48 kg/m2 2013-03-08 Blood pressure systolic 130 mm Hg 2016-01-22 Blood pressure diastolic 88 rt mm Hg 2016-01-22 MEDICATIONS Medication Instructions Dosage Frequency Start End Duration Statu s Date Date Advair Diskus Inhalation Twice 1 puff 12h U nknown 250-50 MCG/DOSE a day Montelukast Orally Once a 1 tablet in 24h Oct, day(s) Unknown Sodium 10 MG day the evening 2015 Proventil HFA Inhalation every 2 puffs as 4h Unknown 108 (90 Base) 4 hrs needed MCG/ACT Ortho Orally Once a 1 tablet 24h Unknown Tri-Cyclen Lo day 0.18/0.215/0.25 MG-25 MCG PROCEDURES Procedure Date Ordered Result Body Site ALLERGY INJ MULT Mar 14, 2014 ALLERGY INJ MULT Dec 22, 2017 M ANTIGEN THERAPY SERV (1ml=1unit) September 18, 2020 ALLERGY INJ MULT Feb 05, 2016 ALLERGY INJ MULT Jan 25, 2022 ALLERGY INJ MULT August 28, 2015 ALLERGY INJ MULT June 08, 2021 ALLERGY INJ MULT Dec 08, 2013 ALLERGY INJ MULT May 26, 2017 ALLERGY INJ MULT September 06, 2013 ALLERGY INJ MULT June 22, 2018 ALLERGY INJ MULT October 16, 2020 ALLERGY INJ MULT Mar 06, 2015 ALLERGY INJ MULT August 14, 2020 ALLERGY INJ MULT Dec 19, 2014 ALLERGY INJ MULT Dec 27, 2019 INTRADERMAL TESTS October 04, 2013 ALLERGY INJ MULT June 06, 2014 ALLERGY INJ MULT Jan 22, 2016 ALLERGY INJ MULT Dec 27, 2013 ALLERGY INJ MULT Jan 30, 2015 ALLERGY INJ MULT May 01, 2020 ALLERGY INJ MULT August 01, 2014 ALLERGY INJ MULT Dec 21, 2018 ALLERGY INJ MULT May 27, 2016 ALLERGY INJ MULT Apr 25, 2014 ALLERGY INJ MULT May 04, 2018 ALLERGY INJ MULT Mar 22, 2019 ALLERGY INJ MULT Nov 15, 2019 ALLERGY INJ MULT August 09, 2013 ALLERGY INJ MULT September 06, 2014 ALLERGY INJ MULT October 04, 2019 M ANTIGEN THERAPY SERV (1ml=1unit) Jan 22, 2016 ALLERGY INJ MULT Dec 08, 2020 ALLERGY INJ MULT October 25, 2013 ALLERGY INJ MULT Dec 02, 2016 INTRADERMAL TESTS Mar 07, 2014 INTRADERMAL TESTS October 04, 2013 P ANTIGEN THERAPY SERV (.5ml=1 unit) September 29, 2013 ALLERGY INJ MULT May 03, 2015 ALLERGY INJ MULT October 18, 2013 ALLERGY INJ MULT Nov 11, 2016 ALLERGY INJ MULT October 16, 2018 ALLERGY INJ MULT October 11, 2013 ALLERGY INJ MULT Nov 29, 2019 ALLERGY INJ MULT Apr 24, 2015 ALLERGY INJ MULT Dec 05, 2014 ALLERGY INJ MULT Nov 17, 2020 ALLERGY INJ MULT August 18, 2015 ALLERGY INJ MULT September 07, 2018 ALLERGY INJ MULT Nov 10, 2017 ALLERGY INJ MULT Jan 23, 2015 ALLERGY INJ MULT Feb 21, 2014 ALLERGY INJ MULT Apr 03, 2020 ALLERGY INJ MULT Dec 14, 2021 ALLERGY INJ MULT July 04, 2014 ALLERGY INJ MULT Jan 03, 2016 M ANTIGEN THERAPY SERV (1ml=1unit) September 20, 2019 ALLERGY INJ MULT Apr 16, 2017 ALLERGY INJ MULT July 07, 2017 ALLERGY INJ MULT Jan 19, 2014 ALLERGY INJ MULT Nov 24, 2013 ALLERGY INJ MULT Feb 10, 2017 ALLERGY INJ MULT August 01, 2014 M ANTIGEN THERAPY SERV (1ml=1unit) Feb 16, 2018 ALLERGY INJ MULT Apr 05, 2019 P ANTIGEN THERAPY SERV (.5ml=1 unit) July 18, 2014 ALLERGY INJ MULT Jun 05, 2015 ALLERGY INJ MULT Mar 16, 2021 ALLERGY INJ MULT July 20, 2021 ALLERGY INJ MULT October 02, 2015 M ANTIGEN THERAPY SERV (1ml=1unit) Jan 27, 2017 ALLERGY INJ MULT August 26, 2016 ALLERGY INJ MULT October 25, 2019 ALLERGY INJ MULT August 31, 2014 INTRADERMAL TESTS July 29, 2014 ALLERGY INJ MULT Jan 06, 2017 ALLERGY INJ MULT Nov 08, 2013 ALLERGY INJ MULT Jan 26, 2021 ALLERGY INJ MULT May 12, 2015 P ANTIGEN THERAPY SERV (.5ml=1 unit) Feb 23, 2014 ALLERGY INJ MULT May 06, 2016 ALLERGY INJ MULT Apr 18, 2014 ALLERGY INJ MULT Apr 13, 2018 ALLERGY INJ MULT September 03, 2017 ALLERGY INJ MULT Nov 07, 2014 ALLERGY INJ MULT Nov 08, 2019 ALLERGY INJ MULT Feb 01, 2019 ALLERGY INJ MULT August 04, 2013 ALLERGY INJ MULT August 16, 2014 ALLERGY INJ MULT August 23, 2013 ALLERGY INJ MULT October 30, 2015 ALLERGY INJ MULT June 12, 2020 ALLERGY INJ MULT September 14, 2021 ALLERGY INJ MULT Feb 13, 2015 ALLERGY INJ MULT Jan 24, 2014 ALLERGY INJ MULT October 11, 2019 ALLERGY INJ MULT July 27, 2018 ALLERGY INJ MULT Mar 29, 2014 INTRADERMAL TESTS July 19, 2013 ALLERGY INJ MULT July 08, 2016 ALLERGY INJ MULT July 10, 2015 P ANTIGEN THERAPY SERV (.5ml=1 unit) Dec 15, 2014 ALLERGY INJ MULT May 17, 2019 ALLERGY INJ MULT September 19, 2014 ALLERGY INJ MULT October 09, 2016 ALLERGY INJ MULT September 27, 2013 ALLERGY INJ MULT August 28, 2020 ALLERGY INJ MULT Apr 03, 2015 ALLERGY INJ MULT Nov 09, 2018 ALLERGY INJ MULT June 20, 2014 ALLERGY INJ MULT Feb 07, 2020 ALLERGY INJ MULT Jan 13, 2015 ALLERGY INJ MULT Feb 16, 2018 ALLERGY INJ MULT Jan 26, 2018 ALLERGY INJ MULT Apr 04, 2014 ALLERGY INJ MULT Mar 15, 2022 ALLERGY INJ MULT Apr 03, 2016 M ANTIGEN THERAPY SERV (1ml=1unit) September 14, 2021 ALLERGY INJ MULT October 24, 2014 ALLERGY INJ MULT Jan 08, 2019 ALLERGY INJ MULT Dec 06, 2019 ALLERGY INJ MULT July 15, 2014 ALLERGY INJ MULT Dec 14, 2014 ALLERGY INJ MULT May 22, 2020 ALLERGY INJ MULT Feb 06, 2015 ALLERGY INJ MULT Dec 01, 2017 ALLERGY INJ MULT September 20, 2019 ALLERGY INJ MULT Feb 28, 2014 ALLERGY INJ MULT July 06, 2018 ALLERGY INJ MULT Jan 04, 2022 ALLERGY INJ MULT May 13, 2014 ALLERGY INJ MULT Nov 13, 2015 INTRADERMAL TESTS June 15, 2013 M ANTIGEN THERAPY SERV (1ml=1unit) Mar 20, 2020 ALLERGY INJ MULT June 17, 2016 ALLERGY INJ MULT Apr 17, 2015 ALLERGY INJ MULT August 20, 2013 PRICK TESTS June 15, 2013 ALLERGY INJ MULT Nov 22, 2019 ALLERGY INJ MULT October 04, 2013 ALLERGY INJ MULT Nov 28, 2014 P ANTIGEN THERAPY SERV (.5ml=1 unit) July 19, 2013 SPIROMETRY June 15, 2013 ALLERGY INJ MULT October 20, 2017 ALLERGY INJ MULT Feb 16, 2014 ALLERGY INJ MULT Nov 23, 2021 ALLERGY INJ MULT Dec 18, 2015 M ANTIGEN THERAPY SERV (1ml=1unit) Mar 17, 2019 ALLERGY INJ MULT August 08, 2014 ALLERGY INJ MULT 2017 ALLERGY INJ MULT Dec 13, 2013 ALLERGY INJ MULT Apr 03, 2021 ALLERGY INJ MULT Jan 17, 2020 ALLERGY INJ MULT October 31, 2014 ALLERGY INJ MULT Jan 02, 2015 ALLERGY INJ MULT August 11, 2017 ALLERGY INJ MULT July 21, 2017 ALLERGY INJ MULT Jan 05, 2018 ALLERGY INJ MULT Jan 31, 2014 ALLERGY INJ MULT Mar 21, 2014 ALLERGY INJ MULT August 24, 2021 ALLERGY INJ MULT Feb 22, 2022 ALLERGY INJ MULT October 16, 2015 ALLERGY INJ MULT Mar 04, 2016 M ANTIGEN THERAPY SERV (1ml=1unit) August 11, 2017 M ANTIGEN THERAPY SERV (1ml=1unit) Mar 16, 2021 ALLERGY INJ MULT June 12, 2015 ALLERGY INJ MULT Feb 23, 2021 ALLERGY INJ MULT September 16, 2016 ALLERGY INJ MULT September 12, 2014 ALLERGY INJ MULT Apr 26, 2019 P ANTIGEN THERAPY SERV (.5ml=1 unit) October 03, 2014 ALLERGY INJ MULT Mar 27, 2015 ALLERGY INJ MULT October 03, 2014 ALLERGY INJ MULT July 10, 2020 ALLERGY INJ MULT September 06, 2019 ALLERGY INJ MULT September 20, 2013 M ANTIGEN THERAPY SERV (1ml=1unit) July 10, 2015 ALLERGY INJ MULT July 21, 2015 ALLERGY INJ MULT May 18, 2021 ALLERGY INJ MULT Jan 03, 2014 ALLERGY INJ MULT October 21, 2014 ALLERGY INJ MULT Jan 27, 2017 ALLERGY INJ MULT Dec 26, 2014 ALLERGY INJ MULT Nov 15, 2013 ALLERGY INJ MULT June 16, 2017 ALLERGY INJ MULT Feb 16, 2021 ALLERGY INJ MULT Jan 10, 2014 ALLERGY INJ MULT May 22, 2015 ALLERGY INJ MULT June 29, 2021 P ANTIGEN THERAPY SERV (.5ml=1 unit) May 23, 2014 ALLERGY INJ MULT September 11, 2015 ALLERGY INJ MULT Feb 22, 2019 M ANTIGEN THERAPY SERV (1ml=1unit) July 22, 2016 ALLERGY INJ MULT August 22, 2014 ALLERGY INJ MULT September 27, 2019 ALLERGY INJ MULT September 01, 2013 INTRADERMAL TESTS May 30, 2014 ALLERGY INJ MULT July 24, 2020 ALLERGY INJ MULT Dec 23, 2016 ALLERGY INJ MULT Nov 14, 2014 ALLERGY INJ MULT September 07, 2021 ALLERGY INJ MULT Feb 07, 2014 ALLERGY INJ MULT September 29, 2017 ALLERGY INJ MULT July 31, 2015 ALLERGY INJ MULT Mar 03, 2017 M ANTIGEN THERAPY SERV (1ml=1unit) September 07, 2018 ALLERGY INJ MULT Dec 04, 2015 ALLERGY INJ MULT Nov 29, 2013 ALLERGY INJ MULT Feb 22, 2015 ALLERGY INJ MULT November 01, 2013 ALLERGY INJ MULT Mar 20, 2020 ALLERGY INJ MULT Jan 05, 2021 ALLERGY INJ MULT August 17, 2018 ALLERGY INJ MULT May 15, 2015 ALLERGY INJ MULT May 23, 2014 P ANTIGEN THERAPY SERV (.5ml=1 unit) Dec 15, 2013 ALLERGY INJ MULT August 05, 2016 ALLERGY INJ MULT Apr 27, 2021 ALLERGY INJ MULT June 26, 2015 P ANTIGEN THERAPY SERV (.5ml=1 unit) Mar 23, 2015 ALLERGY INJ MULT June 14, 2019 ALLERGY INJ MULT September 26, 2014 INTRADERMAL TESTS Dec 20, 2013 ALLERGY INJ MULT November 01, 2016 ALLERGY INJ MULT October 11, 2013 ALLERGY INJ MULT September 18, 2020 ALLERGY INJ MULT Apr 10, 2015 ALLERGY INJ MULT Nov 30, 2018 ALLERGY INJ MULT June 29, 2014 ALLERGY INJ MULT Feb 28, 2020 ALLERGY INJ MULT Jan 16, 2015 ALLERGY INJ MULT Mar 09, 2018 ALLERGY INJ MULT Mar 23, 2018 ALLERGY INJ MULT Apr 11, 2014 ALLERGY INJ MULT Apr 26, 2022 ALLERGY INJ MULT May 05, 2017 INTRADERMAL TESTS October 10, 2014 ALLERGY INJ MULT Apr 15, 2016 ALLERGY INJ MULT September 28, 2018 ALLERGY INJ MULT July 26, 2013 ALLERGY INJ MULT June 13, 2014 ALLERGY INJ MULT November 01, 2019 RESULTS No Results REASON FOR VISIT Allergy Shot, Allergy Shot, Allergy Shot, Allergy Shot, Allergy Shot, Allergy Shot, ENT Allergy Shot, Allergy Shot, serum mix, ENT Allergy Shot, ENT Allergy Shot, ENT Allergy Shot, ENT Allergy Shot, ENT Allergy Shot, ENT Allergy Shot, ENT Allergy Shot, ENT Allergy Shot, ENT Allergy Shot, serum mix, ENT Allergy Shot, Allergy injection, ENT Allergy Shot, ENT Allergy Shot, ENT Allergy Shot, ENT Allergy Shot, ENT Allergy Shot, pfp 2 vials, ENT Allergy Shot, pfp 2 vials, ENT Allergy Shot, pfp 2 vials, New Serum Mix, ENT Allergy Shot, pfp 2 vials, ENT Allergy Shot, ENT Allergy Shot, pfp 2 vials, ENT Allergy Shot, pfp 2 vials, ENT Allergy Shot, pfp 2 vials, ENT Allergy Shot, Allergy Shot, pfp 2 vials, PFP Allergy Initial Injections. [place] Dragon Disclaimer, pfp 2 vials, New serum, Allergy Shot, pfp 2 vials, pfp 2 vials, pfp 2 vials, pfp 2 vials, pfp 2 vials, ENT Allergy Shot, pfp 2 vials, ENT Allergy Shot, pfp 2 vials, ENT Allergy Shot, pfp 2 vials, ENT Allergy Shot, pfp 2 vials, ENT Allergy Shot, pfp 2 vials, ENT Allergy Shot, pfp 2 vials, ENT Allergy Shot, pfp 2 vials, ENT Allergy Shot, pfp 2 vials, ENT Allergy Shot, pfp 2 vials, ENT Allergy Shot, pfp 2 vials, ENT New Serum, ENT New Serum, ENT Allergy Shot, pfp 2 vials, Allergy , ENT allergy shot, ENT allergy shot, pfp 2 vials, pfp 2 vials, ENT allergy shot, ENT allergy shot, ENT allergy shot, ENT allergy shot, ENT New Serum, ENT allergy shot, ENT New Serum, ENT allergy shot, ENT allergy shot, ENT allergy shot, ENT allergy shot, ENT allergy shot, ENT allergy shot, ENT allergy shot, ENT allergy shot, ENT allergy shot, ENT allergy shot, ENT New Serum, ENT allergy shot, ENT allergy shot, ENT allergy shot, ENT allergy shot, ENT allergy shot, ENT allergy shot, ENT allergy shot, pfp 2 vials, ENT INJ, pfp 2 vials, ENT INJ, PFP Allergy Initial Injections. [place] Dragon Disclaimer, ENT INJ, PFP Allergy Initial Injections. [place] Dragon Disclaimer, ENT New Serum, ENT INJ, pfp 2 vials, ENT INJ, pfp 2 vials, refill elocon, ENT INJ, pfp 2 vials, ENT INJ, pfp 2 vials, ENT INJ, pfp 2 vials, ENT INJ, pfp 2 vials, ENT INJ, pfp 2 vials, ENT INJ, pfp 2 vials, ENT INJ, PFP Allergy Initial Injections. [place] Dragon Disclaimer, ENT New Serum, ENT INJ, pfp 2 vials, ENT INJ, pfp 2 vials, ENT INJ, pfp 2 vials, ENT INJ, pfp 2 vials, ENT INJ, pfp 2 vials, ENT INJ, pfp 2 vials, reaction to left arm, ENT INJ, pfp 2 vials, ENT INJ, pfp 2 vials, ENT INJ, pfp 2 vials, PFP Allergy Initial Injections. [place] Dragon Disclaimer, ENT New Serum, ENT INJ, pfp 2 vials, ENT INJ. pfp 2 vials, ENT INJ. pfp 2 vials, ENT INJ. pfp 2 vials, ENT INJ.pfp 2 vials, ENT INJ. pfp 2 vials, ENT INJ. pfp 2 vials, ENT INJ, ENT INJ. pfp 2 vials, ENT INJ, PFPAllergy Initial Injections. [place] Dragon Disclaimer, ENT New Serum, ENT INJ. pfp 2 vials, ENTINJ. pfp 2 vials, ENT INJ. pfp 2 vials, ENT INJ. pfp 2 vials, ENT INJ. pfp 2 vials, ENT INJ. pfp 2 vi als, ENT INJ, ENT INJ. pfp 2 vials, ENT INJ, ENT INJ. pfp 2 vials, ENT TW w/PFP. PFP Allergy 3 monthf/u. [place] Dragon Disclaimer. PFP Allergy Initial Injections. [place] Dragon Disclaimer,ENT TW w/PFP, ENT New Serum, ENT INJ. pfp 2 vials, ENT INJ. pfp 2 vials, ENT INJ. pfp 2 vials, ENT INJ. pfp 2 vials, astelin, ENT INJ. pfp 2 vials, ENT INJ. pfp 2 vials, ENT INJ. pfp 2 vials, ENT INJ. pfp 2 vials, ENT INJ. pfp 2 vials, ENT new vial TW, started 07/30. PFP Allergy 3 month f/u. pfp 2 vials, ENT Allergy Inj. , ENT Allergy Inj. , ENT Allergy Inj. . PFP Allergy Initial Injections, ENT Allergy Inj. . pfp 2 vials, ENT Allergy Inj. . pfp 2 vials, ENT New Serum, ENT Allergy Inj. . pfp 2 vials, Continue maintenance doses of 0.50ml, ENT Allergy Inj. . pfp 2 vials, Continue maintenance dose of 0.50cc, ENT Allergy Inj. . pfp 2 vials, Continue maintenance doses of 0.50ml, ENT Allergy Inj. , ENT Allergy Inj. . pfp 2 vials, Continue 0.50cc maintenance dose, returning call, ENT Allergy Inj. . pfp 2vials, ENT Allergy Inj. , Pt scheduled 05/26- r/s . pfp 2 vials, ENT Allergy Inj. . pfp 2 vials, Increase doses to 0.50ml per new dosing protocol for patients at C2 and above. , ENT Allergy Inj. . pfp 2vials, Increase doses to 0.25ml, ENT TW W/ PFP. PFP Allergy 3 month f/u. PFP Allergy Initial Injections, Starting Vial 1 at C3 and Vial 2 at C2 today. . pfp 2 vials, ENT Allergy Inj. , Increase dose to 0.50ml. pfp 2 vials, ENT Allergy Inj. , Increase dose to 0.45ml. pfp 2 vials, ENT TW W/ PFP. PFP Allergy 3 month f/u, ENT ALLERGY SHOT, Decrease dose to 0.40ml due to time lapse. pfp 2 vials, ENT SerumNVRH, ENT TW W/ PFP , rash, ENT Allergy SHot, Repeat dose 0.45cc. PFP Allergy multi-injections, Heatrash present to bilat creases of elbows, right worse than left. Has been applying hydrocortisone cream in the evening, however stings due to some open spots. Using oatmeal cream during the day. , ENT Allergy SHot, ENT Allergy SHot, Increase dose to 0.45cc. PFP Allergy multi-injections, ENT Allergy SHot, Increase dose to 0.40cc.. PFP Allergy multi-injections, refills, ENT Allergy SHot, has serum through 03/06, Increase dose to 0.35cc.. PFP Allergy multi- injections, ENT Allergy SHot, Increase dose to 0.30cc.. PFP Allergy multi- injections, ENT Allergy SHot. PFP Allergy multi-injections, Increase dose to 0.25cc, ENT Allergy SHot, Increase dose to 0.20cc. PFP Allergy multi-injections, ENT Allergy SHot,Increrase dose to 0.15cc. PFP Allergy multi-injections, ENT Allergy SHot. PFP Allergy multi-injections, Increase dose to 0.10cc, ENT TW w/ PFP . PFP Allergy 3 month f/u. PFP Allergy single test wheal, Today's SNOT score 5, previous 8., ENT TW w/ PFP , CANC AND DOC ON PFP SIDE, ENT Allergy SHot, Increase dose to 0.30cc. PFP allergy multi-injections.. , ENT-New Serum, ENT Allergy SHot. PFP Allergy multi-injections, Increase dose to 0.25cc, ENT allergy shot. PFP Allergy multi-injections, Decrease dose to 0.20cc due to reaction after last week's injections. Patient states she had a softball size welt on her right arm. Pt's chart was reviewed. This reaction makes sense given that she has severe allergies to weeds and we are now in weed season, ENT Allergy SHot. Repeat previous dose due to 14 day time lapse. -kmd, ENT Allergy SHot. PFP Allergy multi-injections, singulair, ENT Allergy SHot. PFP Allergymulti- injections, ENT Allergy SHot. PFP Allergy multi-injections, ENT Allergy SHot. PFP Allergy multi-injections, ENT Allergy SHot. PFP Allergy multi-injections, PFP Allergy 3 month f/u. PFP Allergy multi test wheals, ENT TW w/ pfp, ENT Allergy SHot. PFP Allergy multi-injections, ENT Allergy SHot. PFPAllergy multi- injections, ENT Allergy SHot. PFP Allergy multi-injections, ENT Allergy SHot. PFP Allergy multi-injections, ent-allergy shot. PFP Allergy multi-injections, ENT Allergy SHot. PFP Allergy multi-injections, ENT Allergy SHot. PFP Allergy multi-injections, ENT Allergy SHot. PFP Allergy multi-injections, ENT TW PFP only. PFP Allergy 3 month f/u. PFP Allergy multi-injections. Pt states that sin ce the last test wheel that the allergens increased due to change of season. Since a year ago she states that she doesn't have the symptoms as bad as she has in the past. She does have itchy eyes, minimal sneezing, runny nose. Denies cough, sore throat. She had bronchal infection 2 weeks ago, she was taking steriods and tesolin louise. Started taking alegra because allergies started., pfp blank, ENT TW from 07/29/14. PFP Allergy 3 month f/u. PFP Allergy multi- injections, pfp blank. PFP Allergy multi-injections, ent-test wheal. PFP Allergy multi test wheals, ENT Allergy SHot, TW w/ pfp, NEW serum, ENTallergy Shot. PFP Allergy multi-injections, ENT Allergy SHot. PFP Allergy multi-injections, ENT Allergy SHot. PFP Allergy multi-injections, pfp blank. PFP Allergy multi- injections, ENT Allergy SHot. PFP Allergy multi-injections, ENT Allergy SHot. PFP Allergy multi-injections, ENT TW no PFP remix . PFPAllergy multi test wheals, ENT Allergy SHot. PFP Allergy multi-injections, serum mix, ENT Allergy SHot, ENT Allergy SHot. PFP Allergy multi-injections, ENT Allergy SHot, ENT Allergy SHot. PFP Allergy multi-injections, ENT Allergy SHot. PFP Allergy multi- injections, ENT Allergy SHot. PFP Allergy multi-injections, ENT Allergy SHot. PFP Allergy multi-injections, ENT allergy shot. PFP Allergy multi-injections, ENT Allergy SHot, ENT Allergy SHot. PFP Allergy multi-injections, ENT Allergy SHot. PFP Allergy multi-injections, ENT TW W/ PFP . PFP Allergy multi test wheals. PFP Allergy 3 month f/u, ENT TW w/PFP, ENT Allergy SHot. PFP Allergy multi-injections, ent serum, ENT Allergy SHot. PFP Allergy multi-injections, ENT Allergy SHot. PFP Allergy multi-injections, ENT Allergy SHot. PFP Allergy multi-injections, ENT Allergy SHot. PFP Allergy multi-injections, ENT Allergy SHot. PFP Allergy multi-injections, ENT Allergy SHot. PFP Allergy multi- injections, ENT Allergy SHot. PFP Allergy multi-injections, ENTAllergy SHot. PFP Allergy multi-injections, ENT Allergy SHot. PFP Allergy multi-injections, ent TW with pfp. PFP Allergy multi test wheals. PFP Allergy 3 month f/u, ent TW with pfp, ent serum, ENT Allergy SHot. PFP Allergy multi-injections, ENT allergy shot. PFP Allergy multi-injections, ENT Allergy SHot. PFP Allergy multi- injections, ENT Allergy SHot. PFP Allergy multi-injections, ENT Allergy SHot. P FP Allergy multi-injections, ENT Allergy SHot. PFP Allergy multi-injections, ENT Allergy SHot. PFP Allergy multi-injections, ENT Allergy SHot. PFP Allergy multi- injections, ENT SHOT. PFP Allergy multi-injections, Singulair/Kitty, ENT allergy . PFP Allergy multi-injections. PFP Allergy 3 month f/u, ENT SHOT. Office note in PFP visit, ENT TW w PFP. PFP Allergy multi test wheals, ent serum, ENT SHOT. PFP Allergy multi-injections, ENT SHOT. PFP Allergy multi- injections, ENT SHOT, ENT SHOT. PFP Allergymulti-injections, ENT SHOT. PFP Allergy multi-injections, ENT SHOT. PFP Allergy multi-injections, ENT Allergy SHot. PFP Allergy multi-injections, ENT Allergy SHot. PFP Allergy multi- injections, ENT Allergy SHot. PFP Allergy multi-injections, ENT Allergy shot. PFP Allergy multi-injections, inhalor use,ENT Allergy multi test wheals and new allergy serum mix, ent serum. new, ENT needs refills on scripts, set up allergy shots, ENT allergy testing. PFP Allergy Test, script nasonex, ENT allergy consult ,pre load Insurance Providers [facility] Member Patient Patient Patient Patient Patient Subscriber Subscriber Subscriber Group Insurance Plan Plan Plan Plan ID Relationship Address Phone Name Date of ID Name Date of No Type Insurance Insurance Insurance Coverage to Subscriber Address Phone Name Dates [facility] [facility] [address] [facility] - [place] [id number] NOT MARIA TERESA Sánchez [facility] (Write [place] (Write Off) [place] [phone] Off) [facility] [phone] [address] self [place] [id number] [place] [address]
[2022-05-10 15:51] LABS: ALT 29 U/L (14-59); AST 39 U/L (15-37); Albumin 3.4 g/dL (3.4-5.0); Alkaline Phosphatase 108 U/L (46-116); Anion Gap 9.1 mmol/L (3-11); BUN 11 mg/dL (7-18); Bilirubin, Total 0.3 mg/dL (0.2-1.0); CO2 24.9 mmol/L (21.0-32.0); Calcium 8.7 mg/dL (8.5-10.1); Calculated LDL 92 mg/dL (<100); Chloride 103 mmol/L (98-107); Cholesterol 157 mg/dL (<200); Estimated GFR 72.58 (mL/min/1.73m2); Glucose 116 mg/dL (74-106); HDL Cholesterol 48 mg/dL (40-60); Sodium 137 mmol/L (136-145); Total Protein 7.3 g/dL (6.4-8.2); Triglyceride 85 mg/dL (<150)
[2022-05-10 15:56] LABS: Hemoglobin A1C 5.7 % (<5.7)
== END 2022-05-10 08:57 | disposition home or self-care (01) ==
LOC: NCHCN 08:56
PROVIDERS: PCP Family Medicine; Visit Provider Family Medicine
DX: I10 Essential (primary) hypertension (principal); Z00.00 Encounter for general adult medical examination without abnormal findings; Z12.4 Encounter for screening for malignant neoplasm of cervix; Z11.51 Encounter for screening for human papillomavirus (HPV)
CPT/HCPCS: 80053; 80061; 88142; 83036; 87624

== ENCOUNTER 2022-07-05 00:14 | Outpatient (CLI) | payer OTHER, SELFPAY ==
--- NOTE | 2022-07-05 08:30 | DI.MAMMO_ITS ---
Exam(s) MAMMO SCREENING EXAM: MAMMO SCREENING CLINICAL HISTORY: SCREENING, Z12.31 TECHNIQUE: Mammograms were interpreted according to the usual protocol including computer analysis w [employer] CAD system, tomosynthesis and C-view imaging. COMPARISON: 2019 through 2021 FINDINGS: The breasts are composed of scattered fibroglandular densities, Breast Density category B. No suspicious masses or suspicious microcalcifications are seen. No skin thickening or abnormal axillary lymph nodes are seen. There has been no significant change from prior exams. IMPRESSION: BI-RADS Category 1, Negative mammogram Yearly screening mammography is recommended. Breast Density - Category B, scattered fibroglandular densities. A negative radiographic report should not delay biopsy if a dominant or clinically suspicious mass is present. Up to ten percent of cancers are not identified on mammography. A negative report may reinforce clinical impression. Adenosis and dense breasts may obscure an underlying neoplasm. False positive reports average 6 to 10%. Patient will receive a letter notifying them of these results.
== END 2022-07-05 00:34 ==
LOC: DI 00:15
PROVIDERS: PCP Family Medicine; Visit Provider Family Medicine
DX: Z12.31 Encounter for screening mammogram for malignant neoplasm of breast (principal)
CPT/HCPCS: 77063; 77067

== ENCOUNTER 2022-08-27 14:55 | Outpatient (REF) | payer OTHER, SELFPAY ==
[2022-08-27 15:47] LABS: Anion Gap 8.8 mmol/L (3-11); BUN 11 mg/dL (7-18); CO2 26.2 mmol/L (21.0-32.0); CREATININE 0.9 mg/dL (0.55-1.02); Calcium 8.9 mg/dL (8.5-10.1); Chloride 104 mmol/L (98-107); Estimated GFR 82.37 (mL/min/1.73m2); Glucose 108 mg/dL (74-106); Potassium 3.6 mmol/L (3.5-5.1); Sodium 139 mmol/L (136-145)
[2022-08-27 15:58] LABS: Hemoglobin A1C 5.9 % (<5.7)
== END 2022-08-27 14:56 | disposition home or self-care (01) ==
LOC: NCHCN 14:55
PROVIDERS: PCP Family Medicine; Visit Provider Family Medicine
DX: Z00.00 Encounter for general adult medical examination without abnormal findings (principal); I10 Essential (primary) hypertension; R73.09 Other abnormal glucose
CPT/HCPCS: 80048; 83036

== ENCOUNTER 2023-01-17 18:12 | Outpatient (REF) | payer OTHER, SELFPAY ==
[2023-01-17 15:29] LABS: Calculated LDL 117 mg/dL (<100); Cholesterol 195 mg/dL (<200); HDL Cholesterol 59 mg/dL (40-60); Triglyceride 97 mg/dL (<150)
[2023-01-17 15:30] LABS: Hemoglobin A1C 5.7 % (<5.7)
[2023-01-17 15:45] LABS: Anion Gap 8.4 mmol/L (3-11); BUN 14 mg/dL (7-18); CO2 25.6 mmol/L (21.0-32.0); CREATININE 0.8 mg/dL (0.55-1.02); Calcium 9.2 mg/dL (8.5-10.1); Chloride 105 mmol/L (98-107); Estimated GFR 94.87 (mL/min/1.73m2); Glucose 109 mg/dL (74-106); Potassium 3.9 mmol/L (3.5-5.1); Sodium 139 mmol/L (136-145)
== END 2023-01-17 18:13 | disposition home or self-care (01) ==
LOC: NCHCN 18:12
PROVIDERS: PCP Family Medicine; Visit Provider Family Medicine
DX: I10 Essential (primary) hypertension (principal); R73.09 Other abnormal glucose
CPT/HCPCS: 80048; 80061; 83036

== ENCOUNTER 2023-05-16 16:17 | Outpatient (REF) | payer OTHER, SELFPAY ==
[2023-05-16 15:37] LABS: Anion Gap 10.1 mmol/L (3-11); BUN 13 mg/dL (7-18); CO2 25.9 mmol/L (21.0-32.0); CREATININE 0.9 mg/dL (0.55-1.02); Calcium 9.1 mg/dL (8.5-10.1); Calculated LDL 120 mg/dL (<100); Chloride 103 mmol/L (98-107); Cholesterol 197 mg/dL (<200); Estimated GFR 81.86 (mL/min/1.73m2); Glucose 115 mg/dL (74-106); HDL Cholesterol 60 mg/dL (40-60); Potassium 3.5 mmol/L (3.5-5.1); Sodium 139 mmol/L (136-145); Triglyceride 85 mg/dL (<150)
[2023-05-16 16:51] LABS: Hemoglobin A1C 5.7 % (<5.7)
== END 2023-05-16 16:18 | disposition home or self-care (01) ==
LOC: NCHCN 16:17
PROVIDERS: PCP Family Medicine; Visit Provider Family Medicine
DX: Z00.00 Encounter for general adult medical examination without abnormal findings (principal); Z13.6 Encounter for screening for cardiovascular disorders; Z13.1 Encounter for screening for diabetes mellitus
CPT/HCPCS: 80048; 80061; 83036

== ENCOUNTER → 2023-07-22 02:16 | Outpatient (CLI) | payer OTHER, SELFPAY ==
--- NOTE | 2023-07-22 | DI.MAMMO_ITS ---
Exam(s) MAMMO SCREENING EXAM: MAMMO SCREENING CLINICAL HISTORY: SCREENING MAMMO FOR BREAST CANCER Z12.31 TECHNIQUE: Mammograms were interpreted according to the usual protocol including computer analysis w [employer] CAD system, tomosynthesis and C-view imaging. COMPARISON: 2019 through 2022 FINDINGS: The breasts are composed of scattered fibroglandular densities, Breast Density category B. No suspicious masses or suspicious microcalcifications are seen. No skin thickening or abnormal axillary lymph nodes are seen. There has been no significant change from prior exams. IMPRESSION: BI-RADS Category 1, Negative mammogram Yearly screening mammography is recommended. Breast Density - Category B, scattered fibroglandular densities. A negative radiographic report should not delay biopsy if a dominant or clinically suspicious mass is present. Up to ten percent of cancers are not identified on mammography. A negative report may reinforce clinical impression. Adenosis and dense breasts may obscure an underlying neoplasm. False positive reports average 6 to 10%. Patient will receive a letter notifying them of these results.
== END ==
PROVIDERS: PCP Family Medicine; Visit Provider Family Medicine
DX: Z12.31 Encounter for screening mammogram for malignant neoplasm of breast (principal); R92.323 Mammographic fibroglandular density, bilateral breasts
CPT/HCPCS: 77063; 77067

== ENCOUNTER 2024-06-25 14:43 | Outpatient (REF) | payer OTHER, SELFPAY ==
[2024-06-25 19:43] LABS: Anion Gap 6.2 mmol/L (3-11); BUN 15 mg/dL (7-18); CO2 29.8 mmol/L (21.0-32.0); CREATININE 0.9 mg/dL (0.55-1.02); Calcium 9.6 mg/dL (8.5-10.1); Chloride 105 mmol/L (98-107); Estimated GFR 81.35 (mL/min/1.73m2); Glucose 105 mg/dL (74-106); Potassium 3.7 mmol/L (3.5-5.1); Sodium 141 mmol/L (136-145)
[2024-06-25 19:50] LABS: Hemoglobin A1C 5.9 % (<5.7)
== END 2024-06-25 14:44 | disposition home or self-care (01) ==
LOC: NCHCN 14:43
PROVIDERS: PCP Family Medicine; Visit Provider Family Medicine
DX: I10 Essential (primary) hypertension (principal); Z00.00 Encounter for general adult medical examination without abnormal findings
CPT/HCPCS: 80048; 83036

== ENCOUNTER 2024-07-23 00:13 | Outpatient (CLI) | payer OTHER, SELFPAY ==
--- NOTE | 2024-07-23 | DI.MAMMO_ITS ---
Exam(s) MAMMO SCREENING EXAM: MAMMO SCREENING CLINICAL HISTORY: Z12.31 Screening. TECHNIQUE: Bilateral full field digital CC and MLO mammographic images were obtained with 3D tomosyn thesis and utilizing computer aided detection (CAD). COMPARISON: Prior mammograms were reviewed. FINDINGS: There has been no significant change in the appearance and distribution of the fibroglandular tissue. There are no new spiculated masses nor malignant appearing microcalcification groups. There is no significant architectural distortion nor skin thickening-retraction. IMPRESSION: No radiographic evidence of malignancy. BI-RADS Category 1 - Negative Breast Density - Category C - Heterogeneously dense Breast density Category C or D implies that the patient has dense breast tissue. Dense breast tissue can make it harder to find cancer on a mammogram. Dense breast tissue is also associated with an incr eased risk of breast cancer. This information about the result of the mammogram report was provided to the patient to raise their awareness. Use this report when you speak with the patient about their risks for breast cancer, which includes their family history. At that time, you may recommend additional screening tests (Ultrasoun d or MRI) as these tests may add significant information. A negative radiographic report should not delay biopsy if a dominant or clinically suspicious mass is present. Up to ten percent of cancers are not identified on mammography. A negative report may reinforce clinical impression. Adenosis and dense breasts may obscure an underlying neoplasm. False positive reports average 6 to 10%. Patient will receive a letter notifying them of these results.
== END 2024-07-23 00:33 ==
LOC: DI 00:14
PROVIDERS: PCP Family Medicine; Visit Provider Family Medicine
DX: Z12.31 Encounter for screening mammogram for malignant neoplasm of breast (principal); R92.333 Mammographic heterogeneous density, bilateral breasts
CPT/HCPCS: 77063; 77067

== ENCOUNTER → 2025-03-14 10:37 | Outpatient (CLI) | payer OTHER, SELFPAY ==
--- NOTE | 2025-03-14 10:30 | DI.RAD_ITS ---
Exam(s) XR CHEST 2V PA LATERAL EXAM: XR CHEST 2V PA LATERAL CLINICAL HISTORY: eval pna, COUGH, R05.9 TECHNIQUE: 2D digital imaging was performed. Two views. COMPARISON: CR XR CHEST 2V PA LATERAL from 06/08/2018 FINDINGS: HEART: Normal size. Aorta: Not dilated. PULMONARY VASCULATURE: Normal. MEDIASTINUM: Unremarkable. LUNGS: There are streaky densities overlying right the left heart border which could represent overlying structures versus pneumonia. The right lung is clear. PLEURAL SPACE: No pleural effusion or pneumothorax. BONE:Unremarkable for age. SOFT TISSUES: Unremarkable. IMPRESSION: Streaky densities in the lingula which could represent overlying densities versus pneumonia. DATA REPOSITORY: RADIATION DOSE DELIVERED:
== END ==
LOC: DI 10:37
PROVIDERS: PCP Family Medicine; Visit Provider Nurse Practitioner Family
DX: R05.9 Cough, unspecified (principal); R91.8 Other nonspecific abnormal finding of lung field
CPT/HCPCS: 71046